=== PATIENT | female | born 1990 | race Caucasian/White ===

== ENCOUNTER 2023-03-26 15:20 | Emergency (ER) | payer OTHER ==
[~2023-03-26] VITALS: Ht 172.7 cm; Wt 119.8 kg
[2023-03-26 15:21] VITALS: TEMP 97.6
[2023-03-26] MEDS ORDERED: GABA-1171 PO (15:33)
[2023-03-26] MEDS ORDERED: OMEP40CA4 PO (15:33)
[2023-03-26] MEDS ORDERED: methocarbamoL 750 MG TAB PO ONE (18:20)
[2023-03-26] MEDS ORDERED: LIDOCAINE 5% (LIDODERM) PATCH TD ONE (18:20)
[2023-03-26] MEDS ORDERED: MENT118S2 TP (19:39)
[2023-03-26] MEDS ORDERED: METH-1165 PO (19:39)
[2023-03-26] MEDS ORDERED: ASPE4PAD TOP (19:39)
[2023-03-26 19:51] VITALS: BP 135/71; O2SAT 100
== END 2023-03-26 20:03 | disposition home or self-care (01) ==
LOC: M ED 15:20
DX: M79.651 Pain in right thigh (principal); Z91.040 Latex allergy status; Z88.6 Allergy status to analgesic agent; Z88.0 Allergy status to penicillin; Z88.8 Allergy status to other drugs, medicaments and biological substances; Z79.899 Other long term (current) drug therapy

== ENCOUNTER → 2023-05-21 | Outpatient (CLI) | payer OTHER ==
[~2023-05-21] MED LIST: ASPE4PAD TOP; GABA-1171 PO; MENT118S2 TP; METH-1165 PO; OMEP40CA4 PO
== END ==
LOC: M RAD 08:34
PROVIDERS: ATTEND Advanced Practice Midwife
DX: O36.80X0 Pregnancy with inconclusive fetal viability, not applicable or unspecified (principal); Z3A.08 8 weeks gestation of pregnancy

== ENCOUNTER → 2023-09-19 | Outpatient (CLI) | payer OTHER | LOC: M RAD 07:28 | PROVIDERS: ATTEND Internal Medicine Gastroenterology | DX: R11.0 Nausea (principal) ==

== ENCOUNTER 2023-10-03 13:00 | Emergency (ER) | payer OTHER ==
[~2023-10-03] VITALS: Ht 172.7 cm; Wt 119.1 kg
[2023-10-03] MEDS ORDERED: ONDA4TAB6 (13:07)
[2023-10-03] MEDS ORDERED: OMEP40CA5 (13:07)
[2023-10-03] MEDS ORDERED: SERT50TA29 (13:07)
[2023-10-03] MEDS ORDERED: PYRI50TA8 PO (13:07)
[2023-10-03] MEDS ORDERED: PNV,1TAB3 (13:10)
[2023-10-03] MEDS ORDERED: ONDA-83 (13:10)
[2023-10-03] MEDS ORDERED: SYNT25TA (13:10)
[2023-10-03] MEDS ORDERED: FAMO40TA3 (13:11)
[2023-10-03 14:34] LABS: BLOOD UREA NITROGEN 10 MG/DL (9-23); CALCIUM LEVEL 8.7 MG/DL (8.5-10.1); CARBON DIOXIDE LEVEL 24 MMOL/L (20-31); CHLORIDE LEVEL 110 MMOL/L (98-107); CREATININE FOR GFR 0.76 MG/DL (0.55-1.30); GLOMERULAR FILTRATION RATE > 60.0 (>60); GLUCOSE, FASTING 93 MG/DL (60-100); SODIUM LEVEL 140 MMOL/L (136-145)
[2023-10-03 14:41] LABS: BASO # 0.1 10^3/uL (0.0-0.2); BASO % 0.6 % (0.0-1.0); EOS # 0.1 10^3/uL (0.0-0.5); EOS % 0.7 % (0.0-3.0); HEMATOCRIT 38.8 % (36.0-47.0); HEMOGLOBIN 12.5 g/dl (12.0-15.5); LYMPH # 2.3 10^3/uL (1.5-5.0); LYMPH % 21.7 % (24.0-44.0); MEAN CORPUSCULAR HEMOGLOBIN 27.4 pg (27.0-33.0); MEAN CORPUSCULAR HGB CONC 32.2 g/dl (32.0-36.5); MEAN CORPUSCULAR VOLUME 84.9 fl (80.0-96.0); MONO # 0.7 10^3/uL (0.0-0.8); MONO % 6.5 % (2.0-8.0); NEUTROPHILS # 7.6 10^3/uL (1.5-8.5); NEUTROPHILS % 70.2 % (36.0-66.0); PLATELET COUNT, AUTOMATED 285 10^3/uL (150-450); RED BLOOD COUNT 4.57 10^6/uL (4.00-5.40); WHITE BLOOD COUNT 10.8 10^3/uL (4.0-10.0)
[2023-10-03 15:25] LABS: HCG, SERUM QUANTITATIVE 75684.9 MIU/ML (<4.2)
[2023-10-03] MEDS ORDERED: NS 1,000 ML IV ONE (16:55)
[2023-10-03] MEDS ORDERED: METOCLOPRAMIDE INJ 10MG/2ML VIAL IV ONE (17:15)
[2023-10-03] MEDS ORDERED: REGL10TA6 PO (18:54)
[2023-10-03 19:00] VITALS: BP 130/67; TEMP 97.9; O2SAT 99
== END 2023-10-03 19:05 | disposition home or self-care (01) ==
LOC: M ED 13:00
DX: O21.0 Mild hyperemesis gravidarum (principal); Z3A.01 Less than 8 weeks gestation of pregnancy; Z91.040 Latex allergy status; Z91.048 Other nonmedicinal substance allergy status; Z88.1 Allergy status to other antibiotic agents; Z88.8 Allergy status to other drugs, medicaments and biological substances; Z79.899 Other long term (current) drug therapy
CPT/HCPCS: 76801; 76817; 80048; 81001; 84702; 85025; 86850; 86900; 86901; 87086; 93976; 96361; 96374; 99284; J2765

== ENCOUNTER 2024-02-12 11:21 | Outpatient (CLI) | payer OTHER ==
[~2024-02-12] VITALS: Ht 172.7 cm; Wt 129.6 kg
[~2024-02-12 11:21] MED LIST changes: +FAMO40TA3; +OMEP40CA5; +ONDA-282; +ONDA-83; +PNV,1TAB3; +PYRI50TA8 PO; +REGL10TA6 PO; +SERT50TA29; +SYNT25TA
[2024-02-12 11:39] VITALS: BP 133/68; O2SAT 97
[2024-02-12] MEDS ORDERED: ASPI81CH33 PO (11:44)
[2024-02-12] MEDS ORDERED: HOME MED LIST COMPLETE! XX SCH (12:05)
[2024-02-12] MEDS ORDERED: SERT-141 PO (12:10)
[2024-02-12] MEDS ORDERED: SYNT25TA PO (12:10)
[2024-02-12] MEDS: metroNIDAZOLE (FLAGYL) 500MG TABLET PO ONE (13:53)
== END 2024-02-12 14:08 | disposition home or self-care (01) ==
LOC: M LDO 11:21
PROVIDERS: ATTEND Advanced Practice Midwife
DX: O23.592 Infection of other part of genital tract in pregnancy, second trimester (principal); O99.512 Diseases of the respiratory system complicating pregnancy, second trimester; O99.282 Endocrine, nutritional and metabolic diseases complicating pregnancy, second trimester; O99.342 Other mental disorders complicating pregnancy, second trimester; O99.212 Obesity complicating pregnancy, second trimester; O99.612 Diseases of the digestive system complicating pregnancy, second trimester; J45.909 Unspecified asthma, uncomplicated; E03.9 Hypothyroidism, unspecified; F32.A Depression, unspecified; E66.9 Obesity, unspecified; K21.9 Gastro-esophageal reflux disease without esophagitis; Z3A.26 26 weeks gestation of pregnancy
CPT/HCPCS: 59025; G0463

== ENCOUNTER → 2024-04-07 | Outpatient (CLI) | payer OTHER ==
[~2024-04-07] MED LIST changes: +ASPI81CH33 PO; +SERT-141 PO; +SYNT25TA PO
== END ==
LOC: M WHC 11:12
PROVIDERS: ATTEND Obstetrics & Gynecology
DX: O13.3 Gestational [pregnancy-induced] hypertension without significant proteinuria, third trimester (principal); Z3A.34 34 weeks gestation of pregnancy

== ENCOUNTER → 2024-04-22 | Outpatient (REF) | payer OTHER ==
[~2024-04-22] MED LIST changes: +LABE100T6 PO; -PNV,1TAB3; +PNV,1TAB3 PO; +VENTAER INH
== END ==
LOC: M SFHCWAGY 13:01
PROVIDERS: ATTEND Obstetrics & Gynecology
DX: Z34.83 Encounter for supervision of other normal pregnancy, third trimester (principal); Z36.85 Encounter for antenatal screening for Streptococcus B

== ENCOUNTER → 2024-07-09 | Outpatient (CLI) | payer OTHER ==
[~2024-07-09] MED LIST changes: +ACET-683 PO; +COLA100C5 PO; +OXYC-517 PO
== END ==
LOC: M RAD 08:52
PROVIDERS: ATTEND Internal Medicine Gastroenterology
DX: R11.0 Nausea (principal); K76.0 Fatty (change of) liver, not elsewhere classified; R16.0 Hepatomegaly, not elsewhere classified